=== PATIENT | male | born 1970 | race Caucasian/White ===

== ENCOUNTER 2022-03-25 20:04 | Observation (INO) ==
[2022-03-25 21:01] LABS: Basophils % 0.3 %; Eosinophils % 0.6 %; Hematocrit 46.8 % (37.5-50.1); Hemoglobin 16.1 g/dL (12.9-16.9); Immature Granulocytes % 0.4 % (0-4); Lymphocytes # 1.4 K/mcL (0.6-4.6); Lymphocytes % 20.3 %; Mean Corpuscular HGB Conc 34.4 g/dL (31.6-35.5); Mean Corpuscular Hemoglobin 30.3 pg (28.0-33.3); Mean Platelet Volume 10.7 fL (9.4-12.4); Monocytes # 0.6 K/mcL (0.0-1.3); Monocytes % 8.6 %; Platelet Count 145 K/mcL (140-400); Red Blood Count 5.32 M/mcL (4.19-5.50); Red Cell Distribution Width 12.3 % (11.5-14.5); Segmented Neutrophils % 69.8 %; White Blood Count 7.1 K/mcL (4.3-11.1)
[2022-03-25 21:07] LABS: Influenza A PCR Negative (Negative); Influenza B PCR Negative (Negative); Resp. Syncytial Virus PCR Negative (Negative)
[2022-03-25 21:14] LABS: Acetaminophen < 10 mcg/mL (10-20); BUN/Creatinine Ratio 8 (6-26); Blood Urea Nitrogen 10 mg/dL (6-20); Calcium 9.4 mg/dL (8.6-10.3); Carbon Dioxide 27 mEq/L (23-29); Chloride 105 mEq/L (98-107); Ethanol < 10 mg/dL (Less than 10); Glucose 96 mg/dL (70-105); Osmolality,Calculated 287 (280-300); Potassium 3.9 mEq/L (3.5-5.1); Salicylate < 2.5 mg/dL (15.0-30.0); Sodium 139 mEq/L (136-145); eGFR For African Americans > 60 (> 60); eGFR For Non-African Americans > 60 (> 60)
[2022-03-25 21:20] LABS: Bilirubin,Urine Negative (Negative); Blood,Urine Negative (Negative); Clarity,Urine Clear (Clear); Color,Urine Light-Yellow (Yellow); Glucose,Urine (UA) Normal (Normal); Ketones,Urine Negative (Negative); Leukocyte Esterase,Urine Negative (Negative); Nitrite,Urine Negative (Negative); Protein,Urine Trace mg/dL (Neg-Trace); Specific Gravity,Urine 1.018 (1.010-1.025); Urobilinogen,Urine Normal (Normal)
[2022-03-25 21:32] LABS: Amphetamine Screen,Urine Negative ng/mL (Cutoff=1000); Barbiturate Screen,Urine Negative ng/mL (Cutoff=200); Benzodiazepines Screen,Urine Negative ng/mL (Cutoff=200); Cannabinoid Screen,Urine Negative ng/mL (Cutoff = 50); Cocaine Screen,Urine Negative ng/mL (Cutoff= 300); Opiate Screen,Urine Negative ng/mL (Cutoff=300); Phencyclidine Screen,Urine Negative ng/mL (Cutoff=25)
[2022-03-25 22:00] LABS: SARS-CoV-2 by PCR (In House) Negative (Negative)
[2022-03-25] MEDS ORDERED: traZODone 50 MG TABLET PO PRN (22:53)
[2022-03-25] MEDS ORDERED: haloperidoL 5 MG TABLET PO PRN (22:53)
[2022-03-25] MEDS ORDERED: Acetaminophen 325 MG TABLET PO PRN (22:53)
[2022-03-25] MEDS ORDERED: *HR* LORazepam 1 MG TABLET PO PRN (22:53)
[2022-03-25] MEDS ORDERED: Haloperidol Lactate 5 MG/ML VIAL IM PRN (22:53)
[2022-03-25] MEDS ORDERED: *HR* LORazepam 2 MG/ML VIAL IM PRN (22:53)
[2022-03-25] MEDS ORDERED: hydrOXYzine pamoate 25 MG CAPSULE PO PRN (22:53)
[2022-03-26] MEDS ORDERED: MOM Conc 10 ML UD.LIQ PO PRN (08:08)
[2022-03-26] MEDS ORDERED: Mag Hydrox/Al Hydrox/Simeth 30 ML UDC PO PRN (08:08)
[2022-03-26 09:07] VITALS: BP 119/75; PULSE 54; TEMP 96.8; O2SAT 99
[2022-03-26] MEDS ORDERED: Nicotine 2 MG GUM BC PRN (13:09)
== END 2022-03-26 16:03 | disposition home or self-care (01) ==
LOC: EMEROOARM 20:04 → 1ANU 22:55 → INTOOBSV 22:55 → 1ANU 23:15
PROVIDERS: ADMIT Psychiatry & Neurology Psychiatry; ATTEND Psychiatry & Neurology Psychiatry